=== PATIENT | female | born 1985 | race Caucasian/White ===

== ENCOUNTER → 2021-06-07 14:51 | Outpatient (BNVA) | payer MEDICAID, SELFPAY | PROVIDERS: Visit Provider Obstetrics & Gynecology | DX: N97.9 Female infertility, unspecified (principal); Z31.69 Encounter for other general counseling and advice on procreation | CPT/HCPCS: 82670; 83001; 83520; 84443 ==

== ENCOUNTER 2021-07-14 10:03 | Outpatient (CLI) | payer MEDICAID, SELFPAY ==
--- NOTE | 2021-07-14 10:00 | FL_ITS ---
WS: [id number] HYSTEROSALPINGOGRAM The cervical opening was cannulated by the forming tube selector. Then under fluoroscopic guidance, water-solu ble contrast was injected in a retrograde fashion. CLINICAL INFORMATION: Z31.69 - Encounter for other general counseling and advic... COMPARISON: None. FINDINGS: The uterus fills normally, with no evidence of contour abnormality or filling defect. Bilateral fallo pian tubes are slightly dilated. Normal rapid spillage of contrast into the peritoneum from the LEFT fallopian tube. Delayed filling of the RIGHT fallopian tube with delayed spillage into the peritoneum. FLUOROSCOPY TIME: 0.8 minutes. FL/FL hysterosalpingography [id number] IMPRESSION: 1. Normal filling of the uterus. Normal uterine contour. 2. Mild dilatation of the fallopian tubes bilaterally. 3. Rapid filling and spillage from the LEFT fallopian tube into the peritoneum . 4. Delayed filling of the RIGHT fallopian tube with delayed spillage into the peritoneum
[2021-07-14] MEDS: iohexol 300 mg/mL 50 mL Btl VAGINAL (10:52)
== END 2021-07-14 10:04 | disposition home or self-care (01) ==
LOC: RAD 10:09
PROVIDERS: Visit Provider Obstetrics & Gynecology
DX: Z31.69 Encounter for other general counseling and advice on procreation (principal); N83.8 Other noninflammatory disorders of ovary, fallopian tube and broad ligament
CPT/HCPCS: 74740

== ENCOUNTER → 2021-08-02 16:03 | Outpatient (BNVA) | payer MEDICAID, OTHER, SELFPAY | PROVIDERS: Visit Provider Obstetrics & Gynecology | DX: N89.8 Other specified noninflammatory disorders of vagina (principal); B96.89 Other specified bacterial agents as the cause of diseases classified elsewhere; Z31.69 Encounter for other general counseling and advice on procreation | CPT/HCPCS: 87070; 87205 ==

== ENCOUNTER → 2021-09-26 08:46 | Outpatient (BNVA) | payer MEDICAID, SELFPAY | PROVIDERS: Visit Provider Obstetrics & Gynecology | DX: N97.9 Female infertility, unspecified (principal); Q50.39 Other congenital malformation of ovary; N88.8 Other specified noninflammatory disorders of cervix uteri | CPT/HCPCS: 76830 ==

== ENCOUNTER → 2021-09-30 09:27 | Outpatient (BNVA) | payer MEDICAID, SELFPAY | PROVIDERS: Visit Provider Obstetrics & Gynecology | DX: Z31.69 Encounter for other general counseling and advice on procreation (principal) | CPT/HCPCS: 84144 ==

== ENCOUNTER → 2021-10-19 10:46 | Outpatient (BNVA) | payer MEDICAID, SELFPAY | PROVIDERS: Visit Provider Obstetrics & Gynecology | DX: N97.9 Female infertility, unspecified (principal); R93.89 Abnormal findings on diagnostic imaging of other specified body structures | CPT/HCPCS: 76830 ==

== ENCOUNTER → 2021-11-07 09:00 | Outpatient (BNVA) | payer MEDICAID, SELFPAY | PROVIDERS: Visit Provider Obstetrics & Gynecology | DX: Z31.69 Encounter for other general counseling and advice on procreation (principal) | CPT/HCPCS: 83525 ==

== ENCOUNTER → 2021-11-15 09:14 | Outpatient (BNVA) | payer MEDICAID, SELFPAY | PROVIDERS: Visit Provider Obstetrics & Gynecology | DX: Z31.41 Encounter for fertility testing (principal) | CPT/HCPCS: 76830 ==

== ENCOUNTER → 2021-11-28 09:15 | Outpatient (BNVA) | payer MEDICAID, SELFPAY | PROVIDERS: Visit Provider Obstetrics & Gynecology | DX: N97.9 Female infertility, unspecified (principal) | CPT/HCPCS: 84144 ==

== ENCOUNTER → 2021-12-21 13:50 | Outpatient (BNVA) | payer MEDICAID, SELFPAY | PROVIDERS: Visit Provider Obstetrics & Gynecology | DX: Z31.83 Encounter for assisted reproductive fertility procedure cycle (principal) | CPT/HCPCS: 76830 ==

== ENCOUNTER → 2022-02-14 11:39 | Outpatient (BNVA) | payer MEDICAID, SELFPAY | PROVIDERS: Visit Provider Obstetrics & Gynecology | DX: N97.9 Female infertility, unspecified (principal) | CPT/HCPCS: 76830 ==

== ENCOUNTER → 2022-03-10 10:31 | Outpatient (BNVA) | payer MEDICAID, SELFPAY | PROVIDERS: Visit Provider Obstetrics & Gynecology | DX: O46.90 Antepartum hemorrhage, unspecified, unspecified trimester (principal) | CPT/HCPCS: 84702; 86850; 86900 ==

== ENCOUNTER 2022-04-18 07:50 | Outpatient (CLI) | payer MEDICAID, SELFPAY ==
--- NOTE | 2022-04-18 08:00 | US_ITS ---
WS: [id number] TRANSVAGINAL PELVIC ULTRASOUND HISTORY: N97.9 - Female infertility, unspecified COMPARISON: 02/14/2022 Uterus: 9.7 cm x 6.2 cm x 4.6 cm. Normal size anteverted uterus. No fibroid or mass. Small amount of fluid along the endocervical canal. Endometrium: 1.4 cm. Normal trilaminar appearance of the endometrium. Right ovary: 3.7 cm x 2.6 cm x 2.3 cm. Only a single follicle is identified. Follicle measures 1.8 x 2.0 x 1.9 cm. Left ovary: 3.8 cm x 2.8 cm x 2.6 cm. Only a single follicle is identified. This follicle measures 1. 5 x 1.4 x 1.6 cm. No free fluid in the cul-de-sac. US/US transvaginal [id number] IMPRESSION: 1. Single bilateral ovarian follicles are identified. The largest follicle RIG HT ovary measures 1.8 x 2.0 x 1.9 cm. 2. Trilaminar endometrium.
== END 2022-04-18 07:51 | disposition home or self-care (01) ==
LOC: RAD 07:51
PROVIDERS: Visit Provider Obstetrics & Gynecology
DX: N97.9 Female infertility, unspecified (principal)
CPT/HCPCS: 76830

== ENCOUNTER → 2022-05-17 08:17 | Outpatient (BNVA) | payer MEDICAID, SELFPAY | PROVIDERS: Visit Provider Obstetrics & Gynecology | DX: Z31.41 Encounter for fertility testing (principal) | CPT/HCPCS: 76830 ==

== ENCOUNTER → 2022-06-12 15:39 | Outpatient (BNVA) | payer MEDICAID, SELFPAY | PROVIDERS: Visit Provider Obstetrics & Gynecology | DX: N97.9 Female infertility, unspecified (principal) | CPT/HCPCS: 76830 ==

== ENCOUNTER 2022-07-04 09:28 | Day surgery (SDC) | payer MEDICAID, SELFPAY ==
[2022-07-03 10:34] VITALS: BMI 27.4
--- NOTE | 2022-07-03 12:27 | P.HP_ITS ---
Providers/Chief Complaint Admitting Physician: Kareen Rich MD Chief Complaint: Abdominal pain History of Present Illness Cristal Marie is a 36 year old female who has been undergoing IUI for infertility. She attained a , but it resulted in miscarriage. She reports that her periods are irregular and painful. She has a history of previous abnormal HSG. She was shown to have dilated fallopian tubes and delayed spill on the right. With this abnormal finding and her pain, I want to perform hysteroscopy to remove any abnormal tissue that may be causing an issue. She has been scheduled for hysteroscopy, dilation and curettage on 07/04/22. Review of Systems General: Reports: 10 or more systems reviewed and unremarkable except in HPI and below Medications/Allergies Home Medications Medication Instructions Recorded Confirmed Last Taken Type L.acidophil,salivari-Bifido 1 cap PO DAILY 09/05/21 07/03/22 Unknown History bifidum-Strep thermoph 175 mg capsule (Acidophilus Probiotic Blend) prenat.vits,jeffery,[id number]-rauk-hqclb 1 tab PO DAILY 11/07/21 07/03/22 Unknown History Allergies Allergy/AdvReac Type Severity Reaction Status Date / Time No Known Allergies Allergy Verified 07/03/22 10:33 PFSH Acute PFSH: Medical History History of hysterosalpingogram 2017 [facility] No pertinent past medical history Neg hx: HTN, DM, thyroid, DVT Surgical History H/O LIA 2008 - at [facility] History of delivery 08/31/2020 - [facility] History of colposcopy 2017 [facility] Family History Father Cancer Prostate Stroke Grandmother Dementia Grandfather Suicide Family/Other Suicide Denies family history of Diabetes CAD (coronary artery disease) Clotting disorder Hyperlipidemia Psychiatric illness Chronic kidney disease (CKD) Anesthesia complication Bleeding disorder Family history of premature coronary artery disease Lung disease Hypertension Social History Smoking and tobacco status: never smoked Female Reproductive History: Date of last menstrual period: 06/28/22 Vitals/I&O/Wt Weight last 48 hrs Weight 170 lb Physical Exam Const: COMMON NORMALS: no acute distress, average body habitus, patient oriented x3, no limitations, healthy appearing, alert and well nourished GENERAL APPEARANCE: cooperative, comfortable, well kempt and well developed ORIENTATION/CONSCIOUSNESS: Yes awake, Yes oriented to person, Yes oriented to place and Yes oriented to time Resp: COMMON NORMALS: normal respiratory effort and clear to auscultation bilaterally EFFORT & INSPECTION: Yes able to speak in complete sentences Cardio: COMMON NORMALS: regular rate and regular rhythm GI: COMMON NORMALS: Soft to palpation and non-tender : COMMON NORMALS: Yes normal external appearance, Yes normal appearance of the vagina, Yes normal appearance of the cervix, Yes normal bimanual exam, Yes No adnexal tenderness and Yes no masses Extremity: COMMON NORMALS: no calf tenderness Psych: COMMON NORMALS: mental status grossly normal, Normal thought process present, cooperative, normal affect and speech normal A&P Assessment and plan (1) Pelvic pain: plan hysteroscopy, dilation and curettage with myosure to remove any abnormal tissue. Surgery has been scheduled for 07/04/22 Risks, benefits and alternatives to procedure were discussed with the patient including but not limited to: pain, bleeding, infection, development of a blood clot or pulmonary embolism, damage to bowel, bladder, ureters, blood vessels, formation of scar tissue or even . . These are the most common complications, but there may be other, unforseen complications that could arise during surgery. The patient accepts these risks and desires to proceed. Status: Acute (2) Female infertility: Status: Acute Attestations Medical Necessity Statement*: This surgery will be performed outpatient. Coding Level of Care Code Acute Mechanical Engineering Specialist for [facility] Parul Diagnoses Pelvic pain R10.2 Female infertility N97.9
[2022-07-04] VITALS (8 sets, daily range): BP systolic 115–137; BP diastolic 71–96; PULSE 59–93; RESP 16–18; TEMP 36.5–36.8; O2SAT 99–100
[2022-07-04] MEDS: diphenhydrAMINE 50 mg/mL SDV 1mL 12.5 MG IVP (09:57)
[2022-07-04] MEDS: sodium chloride 0.9% 1,000 ML 30 ML IV (09:57)
[2022-07-04] MEDS: scopolamine 1.5 Patch 1 PATCH TRANSDERMA (09:59)
--- NOTE | 2022-07-04 10:26 | W.PM.OPSUD ---
Surgery/Procedure H&P Update DATE OF PROCEDURE: July 04, 2022 DATE H&P PERFORMED: 07/03/22 H&P UPDATE INFORMATION: I have reviewed H&P completed within last 30 days, I have examined patient prior to procedure and No changes to prior documentation PREOP DIAGNOSIS: irregular menses, female infertility PLANNED PROCEDURE: Operation Date: 07/04/22 11:05 Proposed Procedures p Hysteroscopy, dilation and curettage with Myosure [id number],N92.6(Not Applicable) - Kareen Rich MD s Dilation And Curettage (D&C)(Not Applicable) - Kareen Rich MD Related Problem List Diagnoses (1) Pelvic pain: (2) Female infertility:
[2022-07-04] MEDS: ceFAZolin 2,000 MG in sodium chloride 0.9% (plus) 50 ML 100 MG IV (10:43)
--- NOTE | 2022-07-04 11:20 | P.ANESASSM_ITS ---
Pre-Anesthetic Assessment Height/Weight: Height 1.68 m Weight 77.111 kg Temp Pulse Resp BP Pulse Ox O2 Del Method 98.2 F 76 16 137/84 99 07/04/22 09:39 07/04/22 09:39 07/04/22 09:39 07/04/22 09:39 07/04/22 09:39 07/04/22 09:39 Preop Diagnosis: irregular menses, female infertility Operation Date: 07/04/22 11:05 Proposed Procedures p Hysteroscopy, dilation and curettage with Myosure [id number],N92.6(Not Applicable) - Kareen Rich MD s Dilation And Curettage (D&C)(Not Applicable) - Kareen Rich MD Familial anesthetic complications: None Was Beta Shivani taken within 24 hours: N/A Was Clonidine taken within 24 hours: N/A Last intake: Intake Last Liquid Date 07/03/22 Last Liquid Time 22:00 Last Solid Date 07/03/22 Last Solid Time 22:00 Social No alcohol and No tobacco Exam alert, oriented x 3, clear to auscultation bilaterally and regular rate & rhythm Airway Submandibular: within normal limits Cervical ROM: within normal limits Mallampati: Class I Dentition: full History/ROS No significant complaints Pulmonary None reported CV/HEM None reported irregular menses Hepatic None reported GI None reported Metabolic None reported Musc/skel None reported Neuropsych None reported Anesthetic Plan ASA status: 1 Anesthesia: Anesthesia Evaluation and General Other: We discussed risk and benefits of general anesthesia including PONV, sore throat (sometimes severe), corneal abrasion, positioning and peripheral nerve injuries, life threatening allergic reaction, post operative ICU admission requiring prolonged intubation, stroke, heart attack, , and rare incidences of recall. Patient consents to proceed with general anesthesia. Risk of > 500 ml blood loss (7ml/kg in children): No Medications/Allergies Home Medications Medication Instructions Recorded Confirmed Last Taken Type L.acidophil,salivari-Bifido 1 cap PO DAILY 09/05/21 07/04/22 07/02/22 History bifidum-Strep thermoph 175 mg capsule (Acidophilus Probiotic Blend) prenat.vits,jeffery,rzt-gsdl-vomtv 1 tab PO DAILY 11/07/21 07/04/22 07/02/22 History Allergies Allergy/AdvReac Type Severity Reaction Status Date / Time No Known Allergies Allergy Verified 07/04/22 09:36 Current Medications Generic Name Dose Route Start Last Admin Trade Name Freq PRN Reason Stop Dose Admin Diphenhydramine HCl 12.5 mg 07/04/22 09:30 07/04/22 09:57 Diphenhydramine 50 Mg/Ml Sdv 1ml IVP 12.5 mg ONCE PRN Administration ANESTHESIA Sodium Chloride 1,000 mls @ 30 mls/hr 07/04/22 09:30 07/04/22 09:57 Sodium Chloride 0.9% IV 07/05/22 09:29 30 mls/hr .Q24H CARMEN Administration PFSH Anesthesia Medical History History of hysterosalpingogram 2017 - [facility] No pertinent past medical history Neg hx: HTN, DM, thyroid, DVT Surgical History H/O LEEP 2008 - at [facility] History of delivery 08/31/2020 - [facility] History of colposcopy 2017 - [facility] Family History Father Cancer Prostate Stroke Grandmother Dementia Grandfather Suicide Family/Other Suicide Denies family history of Diabetes CAD (coronary artery disease) Clotting disorder Hyperlipidemia Psychiatric illness Chronic kidney disease (CKD) Anesthesia complication Bleeding disorder Family history of premature coronary artery disease Lung disease Hypertension Social History Smoking and tobacco status: never smoked Female Reproductive History Date of last menstrual period: 06/28/22 Data Anesthesia Cardiac Studies: No Data to Display
--- NOTE | 2022-07-04 11:27 | P.OP_ITS ---
Operative Report Date of procedure: July 04, 2022 Pre-op diagnosis: Preop Diagnosis irregular menses, female infertility Post-op diagnosis: same Post-op findings: 9 week sized uterus with polyps and/or fibroids Procedure done: hysteroscoy, dilation and curettage with myosure Specimens removed/disposition: endometrial curettage to pathology Surgeon: Kareen Rich Anesthesia: General Estimated blood loss (mL): 5 IV fluids (mL): 700 Complications: none Findings: hysteroscoy deficit 500 ml Condition: stable Disposition: PACU Procedure: The patient was taken to the operating room where monitored anesthesia was administered and to be adequate. She was prepped and draped in the normal sterile fashion in the dorsal lithotomy position in [facility]. A weighted speculum was placed into the vagina and the anterior lip of the cervix grasped with a single-tooth tenaculum. The uterus was sounded to 9 cm. The cervix was dilated to 16 [place]. The hysteroscope was advanced into the endometrial cavity. There was thickened tissue all the way around visualized. The MyoSure device was activated and the tissue was removed. Pictures were taken pre and post procedure. All instruments were removed. The patient tolerated the procedure well. Sponge lap and needle counts were correct x3. She was taken to the recovery room in stable condition.
--- NOTE | 2022-07-04 11:30 | PM.DCS ---
Discharge Providers Date of Admission: 07/04/22 Date of Discharge: July 04, 2022 Attending Provider at Discharge: Kareen Rich MD Diagnoses at Discharge Discharge Diagnosis (1) Pelvic pain: Status: Acute (2) Female infertility: Status: Acute Reason for Visit Reason for Visit: Abdominal pain Hospital Course Hospital Course The patient was admitted for surgery. She did well postoperatively and was ready for discharge. Discharge Data Studies Completed and Pending Pending at discharge Category Date Time Status ES surgery / GI images Routine Exams 07/04/22 09:39 Taken OR HCG Qualitative Urine Routine Lab 07/04/22 09:47 Ordered Pathology: Surgical [PTH] Routine Pth 07/04/22 11:28 Ordered Vitals Last Vital Signs Temp 98.2 F 07/04/22 09:39 Pulse 76 07/04/22 09:39 Resp 16 07/04/22 09:39 BP 137/84 07/04/22 09:39 Pulse Ox 99 07/04/22 09:39 O2 Del Method 07/04/22 09:39 Discharge Plan Discharge Patient Disposition: Home Condition: Stable Prescriptions: Continued L.acidoph,saliva-B.bif-S.therm [Acidophilus Probiotic Blend] 175 mg capsule 1 cap PO DAILY prenat.vits,jeffery,ztl-ehba-ibfqe Tablet 1 tab PO DAILY Discharge Orders: Discharge Order (Routine); Ordered 07/04/22 Ordered By: Kareen Rich Discharge Attestations Time Spent in Discharge Care*: less than 30 min Quality Metrics Clinical Quality Measures [ No reported AMI, CVA or VTE this stay] Coding Level of Care Code Acute Chg FW DC note Diagnoses Pelvic pain R10.2 Female infertility N97.9
--- NOTE | 2022-07-04 11:38 | SUR.PHASEI ---
1126 PT TO PACU 5 PT AWAKE ALERT ON RA SATS 100% RESP EVEN AND UNLABORED ABDOMEN SOFT AND IVANA PAD D/I BILAT SCDS ON HOB AT 30 DEGREES WARM BLANKETS X 4 TO PT, MONITOR SR IWTH NO ECTOPY, IV TO LT AC #20 WITH NS 300ML UP AT KVO RATE PER GRAVITY, ABDOMEN SOFT IVANA PAD D/I
--- NOTE | 2022-07-04 15:44 | ANE.PACU2 ---
Inpatient post-anesthesia follow up: Airway intact: Yes Vital signs: Temperature 97.8 F Pulse Rate 59 Respiratory Rate 18 Blood Pressure 115/76 Pulse Oximetry 100 Oxygen Delivery Me thod Room Air Oxygen Flow Rate Fraction of Inspir ed Oxygen Hydration adequate: Yes Nausea and vomiting: No Pain level: 1 Mental status: Baseline
[2022-07-06 08:52] LABS: OR HCG Qualitative Urine Negative (Negative)
== END 2022-07-04 12:22 | disposition home or self-care (01) ==
PROVIDERS: Anesthesiology; Visit Provider Obstetrics & Gynecology
PROC: 0UDB8ZZ Extraction of Endometrium, Via Natural or Artificial Opening Endoscopic (ICD-10-PCS; CPT 58558; principal; 2022-07-04 10:55)
PROC: (CPT 58120; 2022-07-04 10:55)
DX: N92.6 Irregular menstruation, unspecified (principal); N97.9 Female infertility, unspecified; N84.0 Polyp of corpus uteri; D25.9 Leiomyoma of uterus, unspecified
CPT/HCPCS: 58558; 81025; 84703; 88305; J1100; J1200; J1885; J2250; J2405; J2704; J3010; J7030

== ENCOUNTER → 2022-08-24 11:15 | Outpatient (BNVA) | payer MEDICAID, SELFPAY | PROVIDERS: Visit Provider Obstetrics & Gynecology | DX: R10.2 Pelvic and perineal pain (principal) | CPT/HCPCS: 84702 ==

== ENCOUNTER → 2022-08-28 13:25 | Outpatient (BNVA) | payer MEDICAID, SELFPAY | PROVIDERS: Visit Provider Obstetrics & Gynecology | DX: N97.9 Female infertility, unspecified (principal) | CPT/HCPCS: 84702 ==

== ENCOUNTER → 2022-08-30 13:45 | Outpatient (BNVA) | payer MEDICAID, SELFPAY | PROVIDERS: Visit Provider Obstetrics & Gynecology | DX: N97.9 Female infertility, unspecified (principal); R10.2 Pelvic and perineal pain | CPT/HCPCS: 84702 ==

== ENCOUNTER → 2022-09-01 13:25 | Outpatient (BNVA) | payer MEDICAID, SELFPAY | PROVIDERS: Visit Provider Obstetrics & Gynecology | DX: N97.9 Female infertility, unspecified (principal) | CPT/HCPCS: 84702 ==

== ENCOUNTER → 2022-09-07 14:35 | Outpatient (BNVA) | payer MEDICAID, SELFPAY | PROVIDERS: Visit Provider Obstetrics & Gynecology | DX: R10.2 Pelvic and perineal pain (principal) | CPT/HCPCS: 76817; 84702 ==

== ENCOUNTER → 2022-09-18 13:25 | Outpatient (BNVA) | payer MEDICAID, SELFPAY | PROVIDERS: Visit Provider Obstetrics & Gynecology | DX: R10.2 Pelvic and perineal pain (principal) | CPT/HCPCS: 84702 ==

== ENCOUNTER → 2023-05-22 09:10 | Outpatient (BNVA) | payer MEDICAID, SELFPAY | PROVIDERS: Visit Provider Obstetrics & Gynecology | DX: N97.9 Female infertility, unspecified (principal) | CPT/HCPCS: 84146; 84702 ==

== ENCOUNTER → 2023-05-24 09:00 | Outpatient (BNVA) | payer MEDICAID, SELFPAY | PROVIDERS: Visit Provider Obstetrics & Gynecology | DX: N97.9 Female infertility, unspecified (principal) | CPT/HCPCS: 84702 ==